=== PATIENT | male | born 1945 | race Caucasian/White ===

== ENCOUNTER 2018-03-22 15:28 | Inpatient (IN) | payer MEDICARE ==
[2018-03-22 16:32] LABS: #Lymphocytes 0.9 thou/uL (1.20-3.40); #Monocytes 0.7 thou/uL (0.11-0.59); #Neutrophils 9.1 thou/uL (1.40-6.50); %Basophils 0.3 % (0.0-1.0); %Eosinophils 0.2 % (0.0-10.0); %Lymphocytes 8.5 % (21.0-51.0); %Monocytes 6.6 % (0.0-10.0); %Neutrophils 84.5 % (42.0-75.0); Hemoglobin 15.2 g/dL (14.0-18.0); Mean Corpuscular HGB CONC 33.5 g/dL (32.0-36.0); Mean Corpuscular Hemoglobin 30.2 pg (27.0-31.0); Mean Corpuscular Volume 90.2 fL (78.0-98.0); Mean Platelet Volume 8.6 fL (7.4-10.4); Platelet Count 200 thou/uL (130-400); RBC Distribution Width 12.7 % (11.5-14.5); Red Blood Cell (RBC) Count 5.02 mill/uL (4.70-6.10); White Blood Cell (WBC) Count 10.7 thou/uL (4.8-10.8)
[2018-03-22 16:36] LABS: INR-International Normal Ratio 1.1; PTT 32.5 SEC (22.9-36.1); Prothrombin Time 14.6 SEC (12.0-14.7)
[2018-03-22 16:42] LABS: ALT (SGPT) 178 U/L (8-55); AST (SGOT) 183 U/L (5-34); Albumin 3.6 g/dL (3.4-4.8); Alkaline Phosphatase 67 U/L (40-150); Anion Gap 13 mmol/L (10-20); BUN (Urea Nitrogen) 21 mg/dL (8.4-25.7); Bilirubin, Total 0.6 mg/dL (0.2-1.2); Calc. Creatinine Clearance 0 mL/min (70-130); Calcium 9.3 mg/dL (7.8-10.44); Carbon Dioxide 22 mmol/L (23-31); Chloride 108 mmol/L (98-107); Estimated GFR-MDRD 70; Globulin 4.7 g/dL (2.4-3.5); Glucose 128 mg/dL (83-110); Potassium 4.5 mmol/L (3.5-5.1); Protein, Total 8.3 g/dL (5.8-8.1); Sodium 138 mmol/L (136-145)
[2018-03-22 16:47] LABS: CKMB 5.4 ng/mL (0-6.6); Troponin I 0.092 ng/mL (< 0.028)
[2018-03-22] MEDS ORDERED: Ketorolac Tromethamine 30 MG/ML VIAL ONE (17:03)
--- NOTE | 2018-03-22 17:19 | RAD ---
PORTABLE CHEST ONE VIEW: 03/22/18 at 4:33 p.m. HISTORY: Rib fracture, chest pain. FINDINGS/IMPRESSION: Comparison made with exam of 12/11/16. The heart size is prominent. No focal areas of consolidation, pneumothoraces, or large effusions are seen. There is no evidence of melissa pulmonary edema. Left sided pacemaker device remains in place. Dedicated rib radiographs are recommended to evaluate for rib fractures. POS: [facility]
--- NOTE | 2018-03-22 19:48 | HP ---
REQUESTING PHYSICIAN: Dr. Heller. ATTENDING SURGEON: Dr. Sawant. CONSULTATIONS: None. 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 The patient was able to be self-extricated, actually drove his tractor back to the bar and parked it, went home, took a shower, and then had his family take him to the emergency department in [place] at [facility], where he underwent evaluation and examination and was noted to have bilateral rib fractures and probable sternal fracture. At which time, he was transferred to our facility for evaluation for admission. The patient denied loss of consciousness and only complained of lateral chest wall pain and sternal pain consistent with his fractures. ALLERGIES: NONE. CURRENT MEDICATIONS: 1. Aspirin. 2. Famotidine. 3. Lyrica. 4. Lexapro. 5. Potassium. 6. Simvastatin. PAST MEDICAL HISTORY: Hypertension, coronary artery disease, CIDP, CVA, transverse myelitis. PAST SURGICAL HISTORY: Pacemaker, hemorrhoidectomy, hernia repair, TURP, and "back surgery." SOCIAL HISTORY: The patient lives at home independently with his spouse. He denies drug, tobacco, or alcohol use. He used tobacco and alcohol greater than a decade ago. FAMILY MEDICAL HISTORY: Hypertension. REVIEW OF SYSTEMS: A 10-point review of systems is negative except for otherwise stated. PHYSICAL EXAMINATION: VITAL SIGNS: Blood pressure 122/69, heart rate 63, respirations 18, oxygen saturations 95% on 2 L via nasal cannula, temperature is 97.8. GENERAL: The patient is resting comfortably in bed. He is awake, alert, and oriented x3. Rob Coma Scale is 15. HEENT: Head is normocephalic and atraumatic. Eyes, extraocular motion intact. PERRLA bilaterally. The patient has a small abrasion in the lateral canthus of his right eye. Nose, atraumatic without discharge. Oropharynx, the patient has sutures to his lower lip and his chin, that were repaired in [place]. NECK: Nontender. Trachea is midline. No JVD. CHEST: Clear to auscultation with moderate inspiratory and expiratory effort restricted by pain. HEART: Regular rate and rhythm. ABDOMEN: Soft, flat, and nontender with active bowel sounds. PELVIS: Stable. EXTREMITIES: Neurovascularly intact x4. Capillary refill is less than 3 seconds. BACK: Nontender to the midline. The patient does have tenderness to palpation laterally consistent with his fractures of his ribs. LABORATORY FINDINGS: WBC is 10.7, hemoglobin 15.2, hematocrit 45.3, platelets 200. Sodium 138, potassium 4.5, chloride 108, CO2 of22, BUN 21, creatinine 1.04, glucose 128. Total bilirubin 0.6. AST 183, ALT 178. Lactic acid 1.4. PTT 33, PT 15, INR 1.1. CK-MB 5.4. Troponin 0.092. Radiographic findings: AP chest shows no acute findings. By report, CT of the chest from [place] shows fractures of right ribs 4, 5, 6, and 7 and left ribs 4, 6, and 7 with the possible sternal fracture. Remainder of the CTs by report are unremarkable. ASSESSMENT AND PLAN: 1. Status post crush injury by a william. 2. Bilateral rib fractures. 3. Possible sternal fracture. 4. History of hypertension. 5. History of coronary artery disease. Plan will be to admit the patient to the surgical floor. Rib fracture protocol, pulmonary toilet, gastritis and mechanical VTE prophylaxis. Resume home medications. Repeat chest x-ray in the morning. The evaluation, examination, laboratory, and radiographic findings will be discussed with Dr. Sawant after this dictation. Job ID: [id number]
[2018-03-22] MEDS ORDERED: Ondansetron ODT 4 MG TAB PO PRN (19:49)
[2018-03-22] MEDS ORDERED: hydrALAZINE 20 MG/ML VIAL SLOW IVP PRN (19:49)
[2018-03-22] MEDS ORDERED: Ondansetron PF 4 MG/2 ML Vial IVP PRN (19:49)
[2018-03-22] MEDS ORDERED: Acetaminophen 1,000 MG in Premix Bag 1 BAG IVPB SCH (19:49)
[2018-03-22] MEDS ORDERED: Rib Fracture Protocol PO SCH (19:49)
[2018-03-22] MEDS ORDERED: Dextrose 5% in Water 1,000 ML IV PRN (19:49)
[2018-03-22] MEDS ORDERED: Dextrose 50% Abboject 50 ML SYRINGE SLOW IVP PRN (19:49)
[2018-03-22 19:55] VITALS: BMI 30.7
[2018-03-22] MEDS: Sodium Chloride 0.9% 1,000 ML IV SCH (20:51)
[2018-03-22] MEDS: Famotidine 20 MG TAB PO SCH (20:59)
[2018-03-22] MEDS: Gabapentin 100 MG CAP PO SCH (21:00)
[2018-03-22] MEDS: Ibuprofen 600 MG TAB PO SCH (21:00)
[2018-03-22 21:36] LABS: Troponin I 0.133 ng/mL (< 0.028)
[2018-03-23] MEDS: Acetaminophen 500 MG TAB PO SCH ×4 (00:12→17:37)
[2018-03-23] MEDS: traMADol HCl 50 MG TAB PO SCH ×4 (00:13→17:38)
[2018-03-23] MEDS: Ibuprofen 600 MG TAB PO SCH ×3 (05:24→21:08)
[2018-03-23 05:55] LABS: #Basophils 0.1 thou/uL (0.0-0.2); #Lymphocytes 1.7 thou/uL (1.20-3.40); #Monocytes 0.6 thou/uL (0.11-0.59); #Neutrophils 3.5 thou/uL (1.40-6.50); %Eosinophils 0.6 % (0.0-10.0); %Lymphocytes 28.3 % (21.0-51.0); %Monocytes 10.7 % (0.0-10.0); %Neutrophils 59.5 % (42.0-75.0); Hemoglobin 13.6 g/dL (14.0-18.0); Mean Corpuscular HGB CONC 33.1 g/dL (32.0-36.0); Mean Corpuscular Hemoglobin 29.9 pg (27.0-31.0); Mean Corpuscular Volume 90.3 fL (78.0-98.0); Mean Platelet Volume 8.4 fL (7.4-10.4); Platelet Count 191 thou/uL (130-400); RBC Distribution Width 12.8 % (11.5-14.5); Red Blood Cell (RBC) Count 4.54 mill/uL (4.70-6.10); White Blood Cell (WBC) Count 5.9 thou/uL (4.8-10.8)
[2018-03-23 06:05] LABS: Anion Gap 11 mmol/L (10-20); BUN (Urea Nitrogen) 25 mg/dL (8.4-25.7); Calc. Creatinine Clearance 90 mL/min (70-130); Calcium 8.8 mg/dL (7.8-10.44); Carbon Dioxide 24 mmol/L (23-31); Chloride 106 mmol/L (98-107); Estimated GFR-MDRD 72; Glucose 88 mg/dL (83-110); Potassium 3.7 mmol/L (3.5-5.1); Sodium 137 mmol/L (136-145)
[2018-03-23 07:07] LABS: Phosphorus 3.2 mg/dL (2.3-4.7)
--- NOTE | 2018-03-23 08:01 | RAD ---
CHEST 1 VIEW: Date: 03/23/18 INDICATION: History of chest trauma. IMPRESSION: Examination is not appreciably changed from the comparison study. Tiny left pleural effusion persists . No pneumothorax is evident. POS: [facility]
[2018-03-23] MEDS: Gabapentin 100 MG CAP PO SCH ×3 (08:22→21:08)
[2018-03-23] MEDS: Famotidine 20 MG TAB PO SCH ×2 (08:22→21:09)
[2018-03-23] MEDS: Sodium Chloride 0.9% 1,000 ML IV SCH (08:23)
[2018-03-23] MEDS: Cyclobenzaprine 10 MG TAB PO PRN (10:07)
[2018-03-23 15:02] LABS: Troponin I 0.065 ng/mL (< 0.028)
--- NOTE | 2018-03-23 15:10 | PRG ---
DATE OF SERVICE: 03/23/2018 SUBJECTIVE: The patient is hospital day 2, status post having a hay bale crush him and he sustained bilateral rib fractures and probable sternal fracture. The patient was started on rib fracture protocol and did very well overnight. This morning with his incentive spirometry, he is able to draw 15 to 1750 on it. He states his pain is controlled. He is tolerating a diet and he has begun working with Physical and Occupational Therapy. OBJECTIVE: VITAL SIGNS: Temperature is 98.4, heart rate 61, blood pressure 121/70, respirations 16, oxygen saturation is 93% on room air. GENERAL: The patient is resting comfortably in bed. He is awake, alert, and oriented x3. [place] Coma Scale is 15. HEENT: Unremarkable. His sutures are clean, dry, and intact of his facial lacerations. LUNGS: Clear to auscultation bilaterally with good inspiratory and expiratory effort. HEART: Regular rate and rhythm. ABDOMEN: Soft, flat, and nontender with active bowel sounds. EXTREMITIES: Neurovascularly intact x4. LABORATORY FINDINGS: White blood cell count 5.9, hemoglobin 13.6, hematocrit 41.0, platelet count 191. Sodium 137, potassium 3.7, chloride 106, CO2 24, BUN 25, creatinine 1.02, glucose 88, magnesium 2.0, phosphorus 3.2. RADIOGRAPHIC FINDINGS: Chest x-ray, tiny left pleural effusion. No pneumothorax evidenced. Examination is not appreciably changed from the comparison study of the prior day. ASSESSMENT AND PLAN: 1. Status post crush injury to chest. 2. Bilateral rib fracture. 3. Sternal fracture. PLAN: Plan will be continue rib fracture protocol. Encourage incentive spirometry, ambulation, and we will repeat his chest x-ray in the morning. Likely, the patient will be able to be discharged probably tomorrow or Sunday at the latest. The evaluation, examination, laboratory, and radiographic findings were done with Dr. Sawant this morning during rounds. Job ID: [id number]
[2018-03-24] MEDS: Acetaminophen 500 MG TAB PO SCH ×5 (00:08→23:31)
[2018-03-24] MEDS: traMADol HCl 50 MG TAB PO SCH ×5 (00:08→23:31)
[2018-03-24] MEDS: Ibuprofen 600 MG TAB PO SCH ×3 (05:32→20:52)
--- NOTE | 2018-03-24 08:10 | RAD ---
CHEST ONE VIEW: INDICATIONS: Follow-up exam. COMPARISON: 03/23/2018 FINDINGS/IMPRESSION: Cardiomegaly persists. There is worsening perihilar prominence, likely related to congestion. No fr ank pleural effusion is evident. Pacemaker is unchanged. IMPRESSION: Slightly worsening pulmonary vascular congestion, may reflect worsening congestive heart failure or v olume overload. POS: [facility]
[2018-03-24] MEDS: Famotidine 20 MG TAB PO SCH ×2 (09:14→20:51)
[2018-03-24] MEDS: Gabapentin 100 MG CAP PO SCH ×3 (09:14→20:52)
[2018-03-24] MEDS ORDERED: Furosemide 20 MG/2 ML VIAL SLOW IVP SCH (11:30)
[2018-03-24] MEDS: Senokot S 8.6-50 MG TAB PO SCH (20:52)
[2018-03-25] MEDS: Acetaminophen 500 MG TAB PO SCH ×4 (06:18→23:27)
[2018-03-25] MEDS: Ibuprofen 600 MG TAB PO SCH ×3 (06:18→20:53)
[2018-03-25] MEDS: traMADol HCl 50 MG TAB PO SCH ×4 (06:19→23:27)
--- NOTE | 2018-03-25 07:51 | PRG ---
DATE OF SERVICE: 03/24/2018 SUBJECTIVE: The patient is hospital day 3, status post having a hay bale strike him in the chest. The patient had bilateral rib fractures. He has been doing well overnight. It was noted on this morning's chest x-ray, it looked like he had some pulmonary congestion, and he will be diuresed today. Otherwise, he is doing well. He is tolerating a diet. His pain is controlled. He has not had a bowel movement yet, which is the only thing that he is concerned with at this time. OBJECTIVE: VITAL SIGNS: Temperature is 97.4, heart rate 60, blood pressure 153/77, respirations 20, and oxygen saturation is 92% on room air. GENERAL: The patient is resting comfortably in bed. He is awake, alert, and oriented x3. Rob Coma Scale is 15. HEENT: Unremarkable. LUNGS: Clear to auscultation with good inspiratory and expiratory effort. HEART: Regular rate and rhythm. ABDOMEN: Soft, flat, and nontender with active bowel sounds. EXTREMITIES: Neurovascularly intact x4. LABORATORY FINDINGS: There are no labs to review this morning. RADIOGRAPHIC FINDINGS: Chest x-ray shows slightly worsening pulmonary vascular congestion, may reflect worsening congestive heart failure or volume overload. ASSESSMENT: 1. Status post crush injury to chest. 2. Bilateral rib fractures. 3. Sternal fracture. 4. Pulmonary congestion noted on radiograph. PLAN: Plan will be to diurese the patient today, continue with rib fracture protocol, encourage ambulation and we will start the patient on a bowel regimen and re-evaluate him again tomorrow. Job ID: [id number]
--- NOTE | 2018-03-25 07:54 | RAD ---
PORTABLE [facility] RADIOGRAPH: DATE: 03/25/2018. COMPARISON: 03/24/2018. HISTORY: Reevaluate lung parenchyma, history of chest trauma. FINDINGS: Stable dual-lead transvenous pacing device. No pneumothorax is evident. There is new patchy opacity in both lung bases with obscuration of bilateral hemidiaphragms and blunt ing of the costophrenic angles suggesting volume loss and/or pleural fluid. Infectious pneumonitis o r aspiration could not be excluded. IMPRESSION: Interval development of hazy bibasilar increased density as detailed above. Followup to resolution r ecommended. POS: [facility]
[2018-03-25] MEDS: Polyethylene Glycol 3350 17 GM Packet PO SCH (08:13)
[2018-03-25] MEDS: Senokot S 8.6-50 MG TAB PO SCH ×2 (08:14→21:01)
[2018-03-25] MEDS: Gabapentin 100 MG CAP PO SCH ×3 (08:15→20:53)
[2018-03-25] MEDS: Famotidine 20 MG TAB PO SCH ×2 (08:15→20:53)
--- NOTE | 2018-03-25 14:52 | PRG ---
DATE OF SERVICE: 03/25/2018 SUBJECTIVE: Mr. Messer is doing well. He has not ambulated in the [place] much, but his pain is controlled. Just advanced his diet to regular today. OBJECTIVE: GENERAL: He is afebrile. VITAL SIGNS: Stable. CHEST: Bilateral clear breath sounds. HEART: Regular rate. ABDOMEN: Soft and nontender. ASSESSMENT: Multiple rib fractures, sternal fracture. PLAN: Home tomorrow. Job ID: [id number]
[2018-03-25] MEDS: Cyclobenzaprine 10 MG TAB PO PRN (20:56)
[2018-03-26] MEDS: traMADol HCl 50 MG TAB PO SCH ×2 (05:41→11:20)
[2018-03-26] MEDS: Acetaminophen 500 MG TAB PO SCH ×2 (05:41→11:20)
[2018-03-26] MEDS: Ibuprofen 600 MG TAB PO SCH (05:42)
--- NOTE | 2018-03-26 08:33 | HP ---
This is an addendum to the H and P dictated by Aniceto Godfrey, Trauma PA, in conjunction with whom I saw the patient this morning. 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 He was able to self-extricate and came into the emergency room, where he was found to have bilateral rib fractures and a probable sternal fracture and was transferred to the [place] for further care. He denied loss of consciousness and complains only of chest wall pain, especially with coughing. He denies shortness of breath and has been using his incentive spirometry as instructed pulling over 2 L. ALLERGIES: HE HAS NO KNOWN DRUG ALLERGIES. MEDICATIONS: He takes only, 1. Aspirin. 2. Simvastatin. 3. Pepcid. 4. Lyrica. 5. Lexapro. 6. Potassium at home. PAST MEDICAL HISTORY: He has a history of hypertension, coronary artery disease, a stroke in the past, transverse myelitis. PAST SURGICAL HISTORY: Pacemaker, hernia repair, TURP, hemorrhoidectomy, as well as back surgery in the past. SOCIAL HISTORY: He is self-employed and lives with his . He does not smoke, drink, or use illicit drugs, although he used to smoke and drink in the past. PHYSICAL EXAMINATION: Complete physical examination reveals some tenderness of the chest wall, minor abrasions of the face and the left lower leg. He does not have any subcutaneous crepitance and his breath sounds are clear superiorly, although he has some minor bibasilar crackles which improved with coughing. Air movement is good and he is otherwise without any unremarkable physical findings. IMAGING STUDIES: X-rays: I reviewed and chest x-ray does not show any evidence of pneumothorax, although he does have a small left pleural effusion. Rib fractures were noted on both sides on outside imaging. LABORATORY DATA: Hematocrit is 41 today, slightly down from 45 at admission; white count is normal. Coags are normal and electrolytes are normal. His troponin was mildly elevated up to 0.1, but has come down to 0.06. ASSESSMENT: Bilateral rib fractures and possible sternal fracture, hemodynamically stable and doing well with pulmonary toilet. Continue with pulmonary toilet and pain control. If he continues to improve, he maybe ready for discharge in the next 24 to 48 hours. Job ID: [id number]
[2018-03-26] MEDS: Polyethylene Glycol 3350 17 GM Packet PO SCH (08:46)
[2018-03-26] MEDS: Famotidine 20 MG TAB PO SCH (08:47)
[2018-03-26] MEDS: Senokot S 8.6-50 MG TAB PO SCH (08:47)
[2018-03-26] MEDS: Gabapentin 100 MG CAP PO SCH (08:47)
[2018-03-26 11:43] VITALS: BP 148/81; TEMP 97.3
--- NOTE | 2018-03-27 12:14 | DIS ---
DATE OF ADMISSION: 03/22/2018 DATE OF DISCHARGE: 03/26/2018 RESIDENT: Hi Hoffman MD. ADMITTING ATTENDING: Dr. Sawant. DISCHARGE ATTENDING: Dr. Carver. CONSULTS: None. PROCEDURES: 1. On 03/22/2018, chest x-ray; impression, the heart size is prominent. No focal areas of consolidation, pneumothoraces, or large effusions are seen. There is no evidence of melissa pulmonary edema. Left-sided pacemaker device remains in place. Dedicated rib radiographs are recommended to evaluate for rib fractures. 2. On 03/23/2018, chest x-ray; impression, examination is not appreciably changed from comparison study. Tiny left pleural effusion exists. No pneumothorax is evident. 3. On 03/24/2018, chest x-ray; impression, slightly worsened pulmonary vascular congestion may reflect worsening congestive heart failure or volume overload. 4. On 03/25/2018, chest x-ray; impression, interval development of hazy bibasilar increased density as detailed above. is recommended. PRIMARY DIAGNOSES: Rib fractures and sternal fracture. SECONDARY DIAGNOSES: Hypertension, coronary artery disease, history of cerebrovascular accident, and transverse myelitis. DISCHARGE MEDICATIONS: 1. Aspirin 325 mg p.o. daily. 2. Potassium citrate 15 mEq p.o. b.i.d. 3. Lyrica 100 mg p.o. daily. 4. Lexapro 5 mg p.o. daily. 5. Famotidine 20 mg p.o. at bedtime. 6. Simvastatin 10 mg p.o. daily. 7. Acetaminophen 1000 mg p.o. q.6 hours p.r.n., 56 tablets. 8. Ibuprofen 600 mg p.o. q.8 hours, 42 tablets. 9. MiraLAX 17 g p.o. daily. 10. Senokot-S one tablet p.o. b.i.d., 14 tablets. 11. Tramadol HCL 50 mg p.o. q.6 hours p.r.n., 30 tablets. Discontinued medications, none. 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 The patient self-extricated and drove himself home, showered and then presented to the [facility], where he was initially evaluated and found to have bilateral rib fractures and probable sternal fracture. The patient was admitted and showed good recovery from said injuries. The patient had good pain control throughout the hospital stay. Occupational Therapy was consulted, and serial chest x-rays were unconcerning for pneumonia. Once it was clear that the patient had good pain control with medication regimen and was having adequate respirations, the patient was deemed stable for discharge. On the day of discharge, the patient had no complaints. Vital signs were stable and exam was unremarkable. The patient was seen and evaluated by Dr. Carver on discharge day. Otherwise, the patient's chronic medical problems were managed with home medications. DISPOSITION: Stable. DISCHARGE INSTRUCTIONS: Location: Home. Diet: Healthy-heart diet. Activity: As tolerated with restrictions to stay off tractor for at least 3 days. Followup: Follow up with primary care provider, Dr. Hernandez, in 10 days and follow up with Dr. Carson in 7 days. Job ID: [id number]
--- NOTE | 2018-03-30 14:28 | EKG ---
Test Reason : ER INDICATION Blood Pressure : / mmHG Vent. Rate : 062 BPM Atrial Rate : 065 BPM P-R Int : 000 ms QRS Dur : 110 ms QT Int : 432 ms P-R-T Axes : 000 -13 -15 degrees QTc Int : 438 ms Electronic atrial pacemaker Moderate voltage criteria for LVH, may be normal variant Possible Inferior infarct , age undetermined Abnormal ECG Confirmed by VIDAL HUERTAS D.O. ([id number]), editor index CHANELLE BREWER ([id number]) on 03/30/2018 2:27:40 PM Referred By: Confirmed By:VIDAL HUERTAS D.O.
== END 2018-03-26 12:00 | disposition home or self-care (01) | DRG 184 ==
LOC: ERS 15:28 → SURG A 19:42
PROVIDERS: ADMIT Surgery; ATTEND Surgery
DX: S22.43XA Multiple fractures of ribs, bilateral, initial encounter for closed fracture (principal); S22.20XA Unspecified fracture of sternum, initial encounter for closed fracture; S28.0XXA Crushed chest, initial encounter; I10 Essential (primary) hypertension; I25.10 Atherosclerotic heart disease of native coronary artery without angina pectoris; Z86.73 Personal history of transient ischemic attack (TIA), and cerebral infarction without residual deficits; Z95.0 Presence of cardiac pacemaker; Z79.82 Long term (current) use of aspirin; Z87.891 Personal history of nicotine dependence; W30.89XA Contact with other specified agricultural machinery, initial encounter; Y92.79 Other farm location as the place of occurrence of the external cause; Y99.8 Other external cause status
CPT/HCPCS: 36415; 71045; 80048; 80053; 82553; 83605; 83735; 84100; 84484; 85025; 85610; 85730; 93005; 94640; 96374; G0390; G8978-GP-CI; G8979-GP-CI; G8980-GP-CI; G8987-GO-CI; G8988-GO-CI; G8989-GO-CI; J0131; J1885; J1940; J7620